=== PATIENT | male | born 1985 | race Two or more races ===

== ENCOUNTER 2016-08-29 08:21 | Day surgery (SDC) | payer OTHER ==
[2016-08-29] VITALS (12 sets, daily range): BP systolic 96–116; BP diastolic 44–68; PULSE 72–84; RESP 16–22; Ht 170.2 cm; Wt 106.6 kg
[~2016-08-29] VITALS: Ht 170.2 cm; Wt 106.6 kg
[~2016-08-29 08:21] MED LIST: BUPIVACAINE 0.25%/EPI (SDV) 30 ML INJ INJ ONE; BUPIVACAINE 0.25%/EPI (SDV) 30 ML INJ ONE
[2016-08-29] MEDS ORDERED: SOD CHLORIDE 0.9% 1,000 ML IV ONE (08:30)
[2016-08-29] MEDS ORDERED: CEFAZOLIN 2 GM/50 ML (PMX) 50 ML IVPB ONE (08:30)
[2016-08-29] MEDS ORDERED: CITA20TA6 PO (10:08)
[2016-08-29] MEDS ORDERED: ARIP5TAB7 PO (10:08)
[2016-08-29 10:20] LABS: BASOPHILS % 0.5 % (0.0-2.0); EOSINOPHILS # 0.1 10^3/ul (0.0-0.5); HEMATOCRIT 48.3 % (42.0-52.0); HEMOGLOBIN 16.3 g/dl (14.0-18.0); LYMPHOCYTES # 2.5 10^3/ul (0.8-2.9); LYMPHOCYTES % 38.3 % (15.0-51.0); MEAN CORPUSCULAR HEMOGLOBIN 29.5 pg (29.0-33.0); MEAN CORPUSCULAR HGB CONC 33.7 g/dl (32.0-37.0); MEAN CORPUSCULAR VOLUME 87.4 fl (82.0-101.0); MEAN PLATELET VOLUME 9.3 fl (7.4-10.4); MONOCYTE # 0.3 10^3/ul (0.3-0.9); MONOCYTES % 5.3 % (0.0-11.0); NEUTROPHIL # 3.5 10^3/ul (1.6-7.5); NEUTROPHILS % 53.9 % (39.0-77.0); PLATELET COUNT 149 10^3/UL (140-440); RED BLOOD COUNT 5.53 10^6/ul (4.70-6.10); RED CELL DISTRIBUTION WIDTH 14.2 % (11.5-14.5); UNCORRECTED WBC 6.5 10^3/ul (4.8-10.8); WHITE BLOOD COUNT 6.5 10^3/ul (4.8-10.8)
[2016-08-29 10:22] LABS: INR 0.89; PT RATIO 0.9
[2016-08-29 10:23] LABS: CONDITION 1; PARTIAL THROMBOPLASTIN TIME 27.4 Sec (25.0-35.0)
[2016-08-29 10:43] LABS: POTASSIUM 4.3 mmol/L (3.5-5.1)
[2016-08-29 10:44] LABS: CALCIUM 9.2 mg/dl (8.4-10.2); CREATININE 0.9 mg/dl (0.61-1.24)
[2016-08-29] MEDS ORDERED: BUPIVACAINE 0.5%/EPI (SDV) 30 ML INJ ONE (11:41)
[2016-08-29] MEDS ORDERED: HYDROmorphONE 2 MG/ML SYG ONE (11:43)
[2016-08-29] MEDS ORDERED: MIDAZOLAM 1 MG/ML 2 ML INJ ONE (11:43)
[2016-08-29] MEDS ORDERED: GLYCOPYRROLATE 0.4 MG INJ ONE (11:52)
[2016-08-29] MEDS ORDERED: CEFAZOLIN 1 GM INJ ONE ×2 (11:52→14:12)
[2016-08-29] MEDS ORDERED: PROPOFOL 20 ML ONE ×2 (11:52→13:04)
[2016-08-29] MEDS ORDERED: NEOSTIGMINE 3 MG/3 ML SYRINGE ONE (11:52)
[2016-08-29] MEDS ORDERED: ROCURONIUM 50 MG INJ ONE (11:52)
[2016-08-29] MEDS ORDERED: ROPIVACAINE 0.5 % 30 ML VIAL ONE (11:52)
[2016-08-29] MEDS ORDERED: ONDANSETRON 4 MG INJ ONE (11:52)
[2016-08-29] MEDS ORDERED: KETOROLAC 30 MG INJ ONE (12:11)
[2016-08-29] MEDS ORDERED: OXYCODONE/ACETAMINOPHEN (5/325) TAB PO PRN ×2 (12:30)
[2016-08-29] MEDS ORDERED: METOCLOPRAMIDE 10 MG INJ IV PRN (12:30)
[2016-08-29] MEDS ORDERED: MEPERIDINE 25 MG INJ IV PRN (12:30)
[2016-08-29] MEDS ORDERED: ONDANSETRON 4 MG INJ IV PRN ×2 (12:30→13:30)
[2016-08-29] MEDS ORDERED: DIPHENHYDRAMINE 50 MG INJ IV PRN (12:30)
[2016-08-29] MEDS ORDERED: MIDAZOLAM 1 MG/ML 2 ML INJ IV PRN (12:30)
[2016-08-29] MEDS ORDERED: HYDROmorphONE (0.2 MG/ML) 10ML SYG IV PRN ×3 (12:30)
[2016-08-29] MEDS ORDERED: HYDROCODONE/APAP (5/325) TAB PO PRN ×2 (13:30)
[2016-08-29] MEDS ORDERED: morphine 4 MG/ML VIAL IV PRN (13:30)
--- NOTE | 2016-08-29 13:41 | OPR ---
Date/Time of Note Date/Time of Note DATE: 08/29/16 TIME: 13:33 Operative Report Procedure Date: Aug 29, 2016 Preoperative Diagnosis Chronic cholecystitis/cholelithiasis Postoperative Diagnosis Chronic cholecystitis/cholelithiasis Operation Performed Laparoscopic cholecystectomy Surgeon: SUSANA HERNÁNDEZ MD Anesthesia: general Anesthesiologist: FARHAT KLEIN MD Estimated Blood Loss: 50 - 100 ml's Specimens Gallbladder Complications: None Pt Condition Post Procedure: stable Disposition: PACU Indications The patient is a obese 31-year-old male who presented to the office with a 1-1/2 month history of right upper quadrant abdominal pain. The patient had clinical signs and symptoms of biliary colic and chronic cholecystitis which was confirmed via and ultrasound done after an emergency room visit which showed gallstones. The patient was scheduled for laparoscopic cholecystectomy; possible open as definitive treatment to prevent further sequelae of gallstone disease which include but are not limited to: Gangrenous cholecystitis, choledocholithiasis, gallstone pancreatitis, ascending cholangitis, etc. All risks and benefits of the procedure including but not limited to: Wound infection, excessive bleeding, common bile duct injury, postoperative biliary leak, retained common bile duct stone, injury to intra-abdominal organs, conversion to open procedure etc. were all explained to the patient in full detail. He fully understood and wished to proceed with the procedure. Informed consent was therefore obtained. Operative Findings Distended thick-walled gallbladder with findings consistent with severe chronic cholecystitis. Dense adhesions. Large stones within the gallbladder. Procedure Description The patient was operating room and placed supine on the operating table. Bilateral sequential compression devices were placed on both lower extremities. A dose of broad-spectrum perioperative intravenous antibiotics was given. After the induction of smooth general endotracheal anesthesia the patient's abdomen was prepped and draped in the standard surgical fashion. After performance of the surgical timeout a 5 mm incision was made in the inferior umbilicus and a Veress needle was used to access the intra-abdominal cavity atraumatically. Pneumoperitoneum was then obtained and the Veress needle was exchanged for a 5 mm trocar through which a 5 mm laparoscope was placed. Three further working ports were then placed a 12 mm port in the sub-xiphoid region and two 5 mm ports in the right upper quadrant. All port sites were anesthetized with 0.25% Marcaine with epinephrine prior to incision. There were filmy adhesions of the omentum to the anterior surface of the gallbladder. These were taken down with a combination of blunt dissection and hook electrocautery. Using atraumatic graspers the gallbladder was grasped and retracted superiorly and laterally exposing the area of Arias's pouch. The gallbladder was thick-walled and distended making it difficult to grasp. Dissection was begun in this area using a combination of blunt dissection and hook electrocautery. There was a lot of fat enveloping the cystic duct structures as well as chronic inflammatory adhesions. The cystic duct was identified as it entered straight into the neck of the gallbladder. Cystic duct was dissected free of surrounding tissues. It was too dilated to take with clips, therefore the duct was transected using an Endo FANNY stapler. Dissection was then continued posteriorly. The cystic artery was identified and dissected free of surrounding tissues. It was clipped proximally and distally 3 and transected using EndoShears. The gallbladder was then dissected off the liver bed using electrocautery. There were dense adhesions of the gallbladder to the liver bed. Once completely free the gallbladder was placed in an Endo Catch bag and withdrawn through the subxiphoid port site and passed off the field as specimen. The subxiphoid port site had to be significantly enlarged to accommodate the thick-walled gallbladder and large stones within it. Hemostasis was then inspected for and noted to be adequate. The abdomen was then irrigated with several liters of warm normal saline and the irrigant returned crystal clear. Pneumoperitoneum was then released and all trochars were withdrawn under direct vision. The fascia of the xiphoid port site was reapproximated using a combination of the Endo close device and a second layer of 0 Vicryl sutures in running fashion. The subcutaneous tissues were irrigated with more warm normal saline and further local anesthesia was applied around the skin of the incision sites. The skin was then reapproximated using 4-0 Monocryl sutures in subcuticular fashion. The incisions were cleaned and Dermabond was applied to the incisions and the patient was awoken from anesthesia and transported to the recovery room in stable condition. All counts were correct at the end of the case 2. SUSANA HERNÁNDEZ MD Aug 29, 2016 13:41
== END 2016-08-29 15:36 | disposition home or self-care (01) ==
LOC: SDS 08:21
PROVIDERS: ATTEND Surgery
DX: K80.10 Calculus of gallbladder with chronic cholecystitis without obstruction (principal)
CPT/HCPCS: 47562; 80048; 85025; 85610; 85730; 88304; J0690; J1170; J1885; J2250; J2405; J2710; J2795; Z7512; Z7610

== ENCOUNTER 2016-09-07 21:29 | Observation (INO) | payer OTHER ==
[~2016-09-07] VITALS: Ht 170.2 cm; Wt 105.0 kg
[~2016-09-07 21:29] MED LIST changes: +ARIP5TAB7 PO; -BUPIVACAINE 0.25%/EPI (SDV) 30 ML INJ INJ ONE; -BUPIVACAINE 0.25%/EPI (SDV) 30 ML INJ ONE; +CITA20TA6 PO
[2016-09-07] MEDS ORDERED: SOD CHLORIDE 0.9% 1,000 ML IV STA (21:49)
[2016-09-07] MEDS ORDERED: ONDANSETRON 4 MG INJ IV STA (21:49)
[2016-09-07 22:12] LABS: ALBUMIN 4.2 g/dl (3.3-4.9); POTASSIUM 4.3 mmol/L (3.5-5.1)
[2016-09-07 22:13] LABS: INR 0.91; PROTIME 12.3 Sec (12.2-14.2)
[2016-09-07 22:14] LABS: CREATININE 0.96 mg/dl (0.61-1.24); PARTIAL THROMBOPLASTIN TIME 22.5 Sec (25.0-35.0)
[2016-09-07 22:15] LABS: ALBUMIN/GLOBULIN RATIO 1.1; BILIRUBIN,DIRECT 0.8 mg/dl (0.00-0.20); BILIRUBIN,INDIRECT 0.4 mg/dl (0-1.1); BILIRUBIN,TOTAL 1.2 mg/dl (0.2-1.3); CALCIUM 9.3 mg/dl (8.4-10.2)
[2016-09-07] MEDS ORDERED: HYDR-3498 PO (22:17)
[2016-09-07 22:53] LABS: BASOPHILS % 0.6 % (0.0-2.0); EOSINOPHILS # 0.1 10^3/ul (0.0-0.5); EOSINOPHILS % 1.3 % (0.0-7.0); HEMATOCRIT 47.6 % (42.0-52.0); HEMOGLOBIN 15.8 g/dl (14.0-18.0); LYMPHOCYTES # 1.1 10^3/ul (0.8-2.9); LYMPHOCYTES % 14.4 % (15.0-51.0); MEAN CORPUSCULAR HEMOGLOBIN 29.1 pg (29.0-33.0); MEAN CORPUSCULAR HGB CONC 33.2 g/dl (32.0-37.0); MEAN CORPUSCULAR VOLUME 87.8 fl (82.0-101.0); MEAN PLATELET VOLUME 8.7 fl (7.4-10.4); MONOCYTE # 0.3 10^3/ul (0.3-0.9); MONOCYTES % 4.3 % (0.0-11.0); NEUTROPHIL # 6.3 10^3/ul (1.6-7.5); NEUTROPHILS % 79.4 % (39.0-77.0); PLATELET COUNT 209 10^3/UL (140-440); RED BLOOD COUNT 5.42 10^6/ul (4.70-6.10); RED CELL DISTRIBUTION WIDTH 14.2 % (11.5-14.5); UNCORRECTED WBC 7.9 10^3/ul (4.8-10.8); WHITE BLOOD COUNT 7.9 10^3/ul (4.8-10.8)
[2016-09-07 22:54] LABS: CONDITION 1
[2016-09-07 23:13] LABS: URINE BILIRUBIN (Dip) 1+ (NEGATIVE); URINE BLOOD (Dip) NEGATIVE (NEGATIVE); URINE COLOR DK. YELLOW (YELLOW); URINE GLUCOSE (Dip) NEGATIVE (NEGATIVE); URINE KETONES (Dip) NEGATIVE (NEGATIVE); URINE LEUKOCYTE ESTERASE (Dip) NEGATIVE (NEGATIVE); URINE NITRITE (Dip) NEGATIVE (NEGATIVE); URINE UROBILINOGEN (Dip) 1.0 E.U./dL (0.1-1.0)
[2016-09-07 23:16] LABS: ADD UMIC NO; URINE TOTAL PROTEIN (Dip) NEGATIVE (NEGATIVE)
--- NOTE | 2016-09-07 23:18 | RADRPT ---
PROCEDURE: CT Abdomen and Pelvis without contrast CLINICAL INDICATION: Status post cholecystectomy on 08/29. Now with pain and vomiting TECHNIQUE: Transaxial images were obtained through the abdomen and pelvis on a multi-slice scanner without the intravenous contrast administration. No oral contrast had previously been given. Sagit adri and coronal re-formations were subsequently reconstructed. One or more of the following dose reduction techniques were used: - Automated exposure control. - Adjustment of the mA and/or kV according to patient size. - Use of iterative reconstruction technique. Radiation dose: CTDIvol = 22.65 mGy; DLP = 1285.42 mGy-cm. COMPARISON: No prior studies are available for comparison. FINDINGS: Lung bases: Discoid atelectasis is seen in the left lower lobe. Liver: The liver is enlarged and extensively fatty infiltrated with no focal lesion identified. Gallbladder: Surgical wali are seen in the gallbladder fossa. No fluid collection is seen in the gallbladder fossa but there is slight stranding in the mesentery extending anteriorly compatible wi th postoperative change. Bile ducts: There is no intrahepatic bile duct dilatation but the common hepatic duct and proximal c ommon bile duct measure 1.0 cm in diameter and the common bile duct tapers to the inferior head of t he pancreas. Pancreas: No pancreatic mass or inflammation is evident. Spleen: Normal in size with no focal lesion. Adrenals: Normal with no mass identified. Kidneys, ureters and bladder: The kidneys are normal in size and there is no mass, pathological calc ification, or hydronephrosis evident. There is no perinephric stranding. The ureters are normal in c aliber and no ureteroliths are identified. The bladder appears unremarkable. Reproductive organs: The prostate is not enlarged. Stomach and bowel: The stomach appears unremarkable as is the small bowel. Abundant stool is seen w ithin the right colon. The colonic wall is mildly thickened in the region of the hepatic flexure. There is no evidence of bowel obstruction. Appendix: A normal vermiform appendix is evident. Peritoneum: No free intraperitoneal fluid or air is identified. Aorta: Normal in caliber with no aneurysmal dilatation. IVC: Unremarkable. Lymph nodes: No pathologically enlarged nodes are identified. Osseous structures: The osseous elements appear intact. IMPRESSION: 1. Status post cholecystectomy. No fluid collection is seen in the gallbladder fossa but there is stranding in the fat extending anteriorly into the mesentery and omentum compatible with postoperati ve change. 2. The common hepatic tendon proximal common bile duct are dilated to 1.0 cm in cross diameter and the common bile duct tapers through the inferior head of the pancreas. No pancreatic mass or inflam mation is evident. 3. Hepatomegaly with extensive diffuse fatty infiltration of the liver. No focal lesion is evident . 4. Mild thickening of the bowel wall of the colon in the region of the hepatic flexure where the po stoperative stranding is seen. There is substantial stool in the right colon but there is no eviden ce of bowel obstruction and a normal vermiform appendix is evident. 5. There is no free intraperitoneal fluid or air. Physician Tamanna Date Time Electronically viewed and signed by Physician Tamanna on 09/07/2016 23:18 /
[2016-09-07 23:23] LABS: ICTOTEST POSITIVE (NEGATIVE)
[2016-09-07] MEDS ORDERED: KETOROLAC 30 MG INJ IV STA (23:35)
[2016-09-07 23:50] VITALS: PULSE 60; TEMP 97.6
--- NOTE | 2016-09-08 00:26 | ERA ---
ER Documentation Chief Complaint Date/Time DATE: 09/08/16 TIME: 00:16 Chief Complaint Pt jaundiced,vomiting, AP X 7 hours. HPI 31-year-old male with a history of chronic cholecystitis and cholelithiasis status post laparoscopic cholecystectomy on [address] Dave, presenting with worsening right upper quadrant and epigastric pain with nausea and vomiting that started today at around 2 PM. He has had multiple episodes of nonbloody and nonbilious vomiting. His pain is constant but not much worse than his usual pain after his surgery. He describes the pain as aching, nonradiating, worse with vomiting. He has been having normal bowel movements. Today he went to [facility], where they told him he had constipation and gave him a prescription for a medication for constipation but also told him to follow-up at [facility] where the surgery was done. The patient has had persistent vomiting all day, he came here for evaluation. He denies any associated fevers, chills, headache, dysuria, hematochezia or melena. ROS All systems reviewed and are negative except as per history of present illness. Medications Home Meds Reported Medications Hydrocodone Bit-Acetaminophen (Hydrocodone Bit-APAP) 5-325MG Tablet, 1 TAB PO Q4 Y for PAIN, TAB 09/07/16 Aripiprazole* (Abilify*) 5 Mg Tab, 5 MG PO DAILY, #30 TAB 08/29/16 Citalopram Hydrobromide* (Citalopram Hydrobromide*) 20 Mg Tablet, 20 MG PO DAILY , #30 TAB 08/29/16 Allergies Allergies: Coded Allergies: No Known Allergy (Unverified , 09/07/16) PMhx/Soc History of Surgery: Yes (Laparoscopic cholecystectomy August 29, 2016) Anesthesia Reaction: No Hx Neurological Disorder: No Hx Respiratory Disorders: No Hx Cardiac Disorders: No Hx Psychiatric Problems: Yes (SCHIZOPHRENIA) Hx Miscellaneous Medical Probl: No Hx Alcohol Use: No Hx Substance Use: No Hx Tobacco Use: No Smoking Status: Never smoker FmHx Family History: No diabetes Physical Exam Vitals Vital Signs Date Time Temp Pulse Resp B/P Pulse Ox O2 Delivery O2 Flow Rate FiO2 09/07/16 23:50 97.6 60 16 115/70 100 Room Air 09/07/16 21:33 97.6 76 18 143/71 98 Physical Exam Const: Well-appearing, mild distress secondary to vomiting, nontoxic Head: Atraumatic Eyes: Normal Conjunctiva, no scleral icterus ENT: Normal External Ears, Nose and Mouth. Neck: Full range of motion. No meningismus. Resp: Clear to auscultation bilaterally Cardio: Regular rate and rhythm, no murmurs Abd: Soft, minimal right upper quadrant tenderness to palpation, no rebound or guarding, mildly distended. Normal bowel sounds Skin: No petechiae or rashes, no jaundice Back: No midline or flank tenderness Ext: No cyanosis, or edema Neur: Awake and alert Psych: Normal Mood and Affect Result Diagram: 09/07/16215209/07/162152 Results 24 hrs Laboratory Tests Test 09/07/16 21:53 09/07/16 22:17 Activated Partial Thromboplast Time 22.5Sec Alanine Aminotransferase (ALT/SGPT) 695IU/L Albumin 4.2g/dl Albumin/Globulin Ratio 1.10 Alkaline Phosphatase 133IU/L Anion Gap 17 Aspartate Amino Transf (AST/SGOT) 555IU/L Basophils # 0.010^3/ul Basophils % 0.6% Blood Urea Nitrogen 14mg/dl Calcium Level 9.3mg/dl Carbon Dioxide Level 27mmol/L Chloride Level 102mmol/L Creatinine 0.96mg/dl Direct Bilirubin 0.80mg/dl Eosinophils # 0.110^3/ul Eosinophils % 1.3% Globulin 3.80g/dl Glucose Level 141mg/dl Hematocrit 47.6% Hemoglobin 15.8g/dl INR International Normalized Ratio 0.91 Indirect Bilirubin 0.4mg/dl Lipase 30U/L Lymphocytes # 1.110^3/ul Lymphocytes % 14.4% Mean Corpuscular Hemoglobin 29.1pg Mean Corpuscular Hemoglobin Concent 33.2g/dl Mean Corpuscular Volume 87.8fl Mean Platelet Volume 8.7fl Monocytes # 0.310^3/ul Monocytes % 4.3% Neutrophils # 6.310^3/ul Neutrophils % 79.4% Nucleated Red Blood Cells # 0.010^3/ul Nucleated Red Blood Cells % 0.0/100WBC Platelet Count 44778^3/UL Potassium Level 4.3mmol/L Prothrombin Time 12.3Sec Prothrombin Time Ratio 1.0 Red Blood Count 5.4210^6/ul Red Cell Distribution Width 14.2% Sodium Level 142mmol/L Total Bilirubin 1.2mg/dl Total Protein 8.0g/dl White Blood Count 7.910^3/ul Urine Bilirubin 1+ Urine Clarity CLEAR Urine Color DK. YELLOW Urine Glucose NEGATIVE% Urine Hemoglobin NEGATIVE Urine Ictotest POSITIVE Urine Ketones NEGATIVE Urine Leukocyte Esterase NEGATIVE Urine Nitrite NEGATIVE Urine Specific [place] >=1.030 Urine Total Protein NEGATIVE Urine Urobilinogen 1.0 E.U./dL Urine pH 6.5 Current Medications Medications (Trade) Dose Ordered Sig/Behzad Route PRN Reason Start Time Stop Time Status Last Admin Dose Admin Sodium Chloride (NS) 1,000 ml @ 1,000 mls/hr Q1H STAT IV 09/07/16 21:49 09/07/16 22:48 DC 09/07/16 22:08 Ondansetron HCl (Zofran Inj) 4 mg ONCE STAT IV 09/07/16 21:49 09/07/16 21:51 DC 09/07/16 22:09 Ketorolac Tromethamine (Toradol) 30 mg ONCE STAT IV 09/07/16 23:35 09/07/16 23:37 DC 09/07/16 23:49 Procedures/MDM Patient is presenting with postop abdominal pain with nausea and vomiting for 1 day. His vitals are all stable and he is afebrile. I have a low suspicion for acute postsurgical intra-abdominal infection. I have a higher suspicion for retained stone. Patient's labs were notable for elevation in liver enzymes with mild bilirubin elevation. There is no evidence of pancreatitis. CT abdomen and pelvis done and shows stranding that may be consistent with postoperative changes. However his common bile duct is dilated to 1 cm per radiology. I discussed these results with Dr. Dave, the patient's surgeon, who recommended admission for observation and for MRCP. The patient's pain and vomiting were controlled with medication in the ED and he remained hemodynamically stable. Patient was admitted to Dr. Hurd, panel physician. Departure Diagnosis: Primary Impression: Postoperative nausea and vomiting Additional Impressions: Transaminitis Common bile duct dilatation Postoperative upper abdominal pain Condition: MISSY Mcdowell MD Sep 08, 2016 00:26
[2016-09-08 01:17] VITALS: Ht 170.2 cm; Wt 105.0 kg
[2016-09-08 01:50] VITALS: BP 117/56; RESP 20
[2016-09-08] MEDS ORDERED: morphine 4 MG/ML VIAL IV PRN (02:30)
[2016-09-08] MEDS ORDERED: ACETAMINOPHEN 650 MG SUPP PR PRN (02:30)
[2016-09-08] MEDS ORDERED: ONDANSETRON 4 MG INJ IV PRN (02:30)
[2016-09-08] MEDS ORDERED: LORAZEPAM 2 MG INJ IV PRN (02:30)
[2016-09-08] MEDS: DEXTROSE 5%-0.45% NACL 1,000 ML IV SCH ×2 (02:58→11:11)
[2016-09-08 05:55] LABS: BASOPHILS % 0.1 % (0.0-2.0); EOSINOPHILS # 0.1 10^3/ul (0.0-0.5); EOSINOPHILS % 1.7 % (0.0-7.0); HEMATOCRIT 41.4 % (42.0-52.0); HEMOGLOBIN 14.1 g/dl (14.0-18.0); LYMPHOCYTES # 1.3 10^3/ul (0.8-2.9); LYMPHOCYTES % 17.4 % (15.0-51.0); MEAN CORPUSCULAR HEMOGLOBIN 29.9 pg (29.0-33.0); MONOCYTE # 0.4 10^3/ul (0.3-0.9); MONOCYTES % 4.9 % (0.0-11.0); NEUTROPHIL # 5.9 10^3/ul (1.6-7.5); NEUTROPHILS % 75.9 % (39.0-77.0); PLATELET COUNT 182 10^3/UL (140-440); RED BLOOD COUNT 4.71 10^6/ul (4.70-6.10); RED CELL DISTRIBUTION WIDTH 14.3 % (11.5-14.5); UNCORRECTED WBC 7.7 10^3/ul (4.8-10.8); WHITE BLOOD COUNT 7.7 10^3/ul (4.8-10.8)
[2016-09-08 06:11] LABS: CONDITION 1
[2016-09-08 06:17] LABS: ALBUMIN 3.4 g/dl (3.3-4.9)
[2016-09-08 06:18] LABS: POTASSIUM 3.9 mmol/L (3.5-5.1)
[2016-09-08 06:20] LABS: ALBUMIN/GLOBULIN RATIO 1.13; BILIRUBIN,DIRECT 0.5 mg/dl (0.00-0.20); BILIRUBIN,INDIRECT 0.5 mg/dl (0-1.1); CREATININE 0.86 mg/dl (0.61-1.24); TOTAL PROTEIN 6.4 g/dl (6.1-8.1)
[2016-09-08 06:21] LABS: CALCIUM 8.6 mg/dl (8.4-10.2)
--- NOTE | 2016-09-08 07:42 | HP ---
DATE OF ADMISSION: 09/08/2016 TIME SEEN: 4 a.m. CHIEF COMPLAINT: Abdominal pain. HISTORY OF PRESENT ILLNESS: The patient is a 31-year-old female with a history of schizophrenia, wh o presented to the emergency department with a chief complaint of abdominal pain, nausea and vomitin g. The patient had a laparoscopic cholecystectomy 10 days ago, on August 29, here, by Dr. Dave. He stated this afternoon he started experiencing abdominal pain, mainly localized in the right upper quadrant and epigastric are, associated with multiple episodes of nonbilious, nonbloody vomiting. He denied any fever, chills, chest pain, shortness of breath. He actually initially went to [place], where he was told he was constipated and was discharged with a prescription, as well as instruction s to follow up here, and as such, he came here for evaluation. When he presented to the ER vitals were stable. Laboratory values were notable for an AST of 555, AL T 695 and a slightly elevated alkaline phosphatase of 133. Otherwise CBC and CMP are within normal limits. CT abdomen and pelvis showed a dilated CBD measuring 1 cm, as well as hepatomegaly with ext ensive diffuse fatty infiltration of the liver, mild thickening of the bowel wall of the colon in th e region of the hepatic flexure, and substantial stool in the right colon, with no evidence or const ipation. The patient was admitted for further management and observation and Dr. Dave has been not ified about the patient's admission. REVIEW OF SYSTEMS: A 12-point review of systems was performed and negative, except as mentioned in the HPI. PAST MEDICAL HISTORY: As per HPI. PAST SURGICAL HISTORY: As per HPI. SOCIAL HISTORY: The patient denied a history of tobacco, alcohol or illicit drug use. ALLERGIES: NO KNOWN DRUG ALLERGIES. HOME MEDICATIONS: 1. Abilify. 2. Citalopram. 3. Humbird. PHYSICAL EXAMINATION: VITAL SIGNS: Stable. GENERAL: In no acute distress, lying in bed, answering questions appropriately. HEENT: No obvious head deformity. No scleral icterus. Pupils are reactive to light. CARDIOVASCULAR: Regular rate and rhythm. No extra sounds. LUNGS: Clear. ABDOMEN: Soft. There is tenderness, mainly on the right side of the abdomen. No guarding, no rebo und tenderness, no rigidity. There are positive bowel sounds. EXTREMITIES: Show no edema. NEUROLOGIC: No focal deficits. LABORATORY: Pertinent positives results as mentioned in the HPI. IMAGING: CT abdomen and pelvis, with results as mentioned in the HPI. IMPRESSION: 1. Probable choledocholithiasis. 2. Abdominal pain, probably secondary to choledocholithiasis. 3. Abnormal liver enzymes, secondary to likely above. 4. Status post recent laparoscopic cholecystectomy for chronic cholecystitis. 5. History of schizophrenia. PLAN: Will keep him n.p.o. He will be placed on IV fluids. Will provide pain medication and antie metics as needed. Given dilated CBD, will obtain a MRCP for further evaluation. Will place a GI co nsult as needed. He will be followed by Dr. Dave, his surgeon. Further workup and management per clinical course. Dictated By: JACINTO HAMPTON/DONG Conf#: [id number] DID#: [id number]
[2016-09-08 08:30] VITALS: BP 109/65; RESP 22
--- NOTE | 2016-09-08 09:35 | CONS ---
Date/Time of Note Date/Time of Note DATE: 09/08/16 TIME: 09:31 Assessment/Plan Assessment/Plan Chief Complaint/Hosp Course 31-year-old male status post laparoscopic cholecystectomy postop day #10 with nausea/vomiting elevated transaminases * The concern here would mainly be for retained common bile duct stone. * MRCP has been ordered. We will follow up. * Continue nothing by mouth, IV fluid hydration until after MRCP * Dulcolax for constipation The above was discussed with the patient and his father at the bedside as well as a primary care team. Further recommendations will made based on patient's clinical course and results of diagnostic studies. Problems: Consultation Date/Type/Reason Admit Date/Time Sep 08, 2016 at 00:08 Date of Consultation: Sep 08, 2016 Type of Consultation: GENERAL SURGERY Reason for Consultation Abdominal pain, vomiting Hx of Present Illness The patient is an obese 31-year-old male status post laparoscopic cholecystectomy on August 29, 2016 for severe chronic cholecystitis and cholelithiasis. The patient's postoperative course had been uneventful until yesterday when he started to experience a little more epigastric abdominal pain which was associated with multiple episodes of nonbilious emesis. The patient presented to the [place] emergency room where he was told to have had constipation. It was recommended that he follow up at [facility]. On arrival to the emergency room here he was found to have elevated transaminases with a total bilirubin level of 1.2. A CT scan which was done showed normal postoperative changes. The common bile duct was seen to be approximately 1 cm with some distal tapering. He has since been admitted. He states he feels better with improvement of his pain and his nausea/vomiting. His last bowel movement was yesterday. He denies any fever/chills. A 14 point review of systems was conducted and was negative except for that which was mentioned in history of present illness Past Medical History Medical History: other (schizophrenia) Past Surgical History Past Surgical Hx: cholecystectomy Family History Significant Family History: no pertinent family hx Social History Smoking Status: Never smoker Exam/Review of Systems Vital Signs Vitals Vital Signs Date Time Temp Pulse Resp B/P Pulse Ox O2 Delivery O2 Flow Rate FiO2 09/08/16 01:50 98.2 71 20 117/56 97 09/07/16 23:50 Room Air Intake and Output 09/07/16 09/07/1617 15:00 23:00 07:00 Intake Total 250 ml Balance 250 ml Exam GENERAL: Awake, alert, oriented 3. No acute distress. SKIN: No jaundice. HEENT: PERRLA, EOMI, No Scleral Icterus NECK: Supple without JVD CARDIOVASCULAR: S1S2, regular rate and rhythm. No murmurs appreciated. RESPIRATORY: Clear to auscultation bilaterally. ABDOMEN: Obese, Soft, bowel sounds present, nondistended, mild epigastric tenderness to palpation. There is no rebound, guarding or evidence of diffuse peritonitis. EXTREMITIES: Free range of motion 4. No cyanosis, edema, or clubbing. NEUROLOGIC: Cranial nerves II-XII are intact. Sensation is intact grossly. Results Result Diagram: 09/08/16 0455 09/08/16 0455 Results 24 hrs Laboratory Tests Test 09/07/16 21:53 09/07/16 22:17 09/08/16 04:55 Activated Partial Thromboplast Time 22.5 L Alanine Aminotransferase (ALT/SGPT) 695 H 637 H Albumin 4.2 3.4 Albumin/Globulin Ratio 1.10 1.13 Alkaline Phosphatase 133 H 108 Anion Gap 17 H 16 Aspartate Amino Transf (AST/SGOT) 555 H 416 H Basophils # 0.0 0.0 Basophils % 0.6 0.1 Blood Urea Nitrogen 14 12 Calcium Level 9.3 8.6 Carbon Dioxide Level 27 27 Chloride Level 102 104 Creatinine 0.96 0.86 Direct Bilirubin 0.80 H 0.50 #H Eosinophils # 0.1 0.1 Eosinophils % 1.3 1.7 Globulin 3.80 H 3.00 Glucose Level 141 131 Hematocrit 47.6 41.4 L Hemoglobin 15.8 14.1 INR International Normalized Ratio 0.91 Indirect Bilirubin 0.4 0.5 Lipase 30 Lymphocytes # 1.1 1.3 Lymphocytes % 14.4 L 17.4 Mean Corpuscular Hemoglobin 29.1 29.9 Mean Corpuscular Hemoglobin Concent 33.2 34.0 Mean Corpuscular Volume 87.8 88.0 Mean Platelet Volume 8.7 9.0 Monocytes # 0.3 0.4 Monocytes % 4.3 4.9 Neutrophils # 6.3 5.9 Neutrophils % 79.4 H 75.9 Nucleated Red Blood Cells # 0.0 0.0 Nucleated Red Blood Cells % 0.0 0.0 Platelet Count 209 # 182 Potassium Level 4.3 3.9 Prothrombin Time 12.3 Prothrombin Time Ratio 1.0 Red Blood Count 5.42 4.71 Red Cell Distribution Width 14.2 14.3 Sodium Level 142 143 Total Bilirubin 1.2 1.0 Total Protein 8.0 6.4 # White Blood Count 7.9 # 7.7 Urine Bilirubin 1+ H Urine Clarity CLEAR Urine Color DK. YELLOW Urine Glucose NEGATIVE Urine Hemoglobin NEGATIVE Urine Ictotest POSITIVE Urine Ketones NEGATIVE Urine Leukocyte Esterase NEGATIVE Urine Nitrite NEGATIVE Urine Specific [place] >=1.030 H Urine Total Protein NEGATIVE Urine Urobilinogen 1.0 E.U./dL Urine pH 6.5 Medications Medications Current Medications Dextrose/Sodium Chloride (D5-1/2ns) 1,000 ml @ 125 mls/hr Q8H IV Last administered on 09/08/16t 02:58; Admin Dose 125 MLS/HR; Start 09/08/16 at 02:30 Lorazepam (Ativan) 0.5 mg Q4H PRN IV ANXIETY; Start 09/08/16 at 02:30 Morphine Sulfate (morphine) 3 mg Q4H PRN IV PAIN; Start 09/08/16 at 02:30 Acetaminophen (Tylenol Supp) 650 mg Q6H PRN OK MILD PAIN LEVEL 1-3; Start 09/08 at 02:30 Ondansetron HCl (Zofran Inj) 4 mg Q4H PRN IV NAUSEA AND/OR VOMITING; Start at 02:30 Procedures Procedures PROCEDURE: CT Abdomen and Pelvis without contrast CLINICAL INDICATION: Status post cholecystectomy on 08/29. Now with pain and vomiting TECHNIQUE: Transaxial images were obtained through the abdomen and pelvis on a multi-slice scanner without the intravenous contrast administration. No oral contrast had previously been given. Sagittal and coronal re-formations were subsequently reconstructed. One or more of the following dose reduction techniques were used: - Automated exposure control. - Adjustment of the mA and/or kV according to patient size. - Use of iterative reconstruction technique. Radiation dose: CTDIvol = 22.65 mGy; DLP = 1285.42 mGy-cm. COMPARISON: No prior studies are available for comparison. FINDINGS: Lung bases: Discoid atelectasis is seen in the left lower lobe. Liver: The liver is enlarged and extensively fatty infiltrated with no focal lesion identified. Gallbladder: Surgical wali are seen in the gallbladder fossa. No fluid collection is seen in the gallbladder fossa but there is slight stranding in the mesentery extending anteriorly compatible with postoperative change. Bile ducts: There is no intrahepatic bile duct dilatation but the common hepatic duct and proximal common bile duct measure 1.0 cm in diameter and the common bile duct tapers to the inferior head of the pancreas. Pancreas: No pancreatic mass or inflammation is evident. Spleen: Normal in size with no focal lesion. Adrenals: Normal with no mass identified. Kidneys, ureters and bladder: The kidneys are normal in size and there is no mass, pathological calcification, or hydronephrosis evident. There is no perinephric stranding. The ureters are normal in caliber and no ureteroliths are identified. The bladder appears unremarkable. Reproductive organs: The prostate is not enlarged. Stomach and bowel: The stomach appears unremarkable as is the small bowel. Abundant stool is seen within the right colon. The colonic wall is mildly thickened in the region of the hepatic flexure. There is no evidence of bowel obstruction. Appendix: A normal vermiform appendix is evident. Peritoneum: No free intraperitoneal fluid or air is identified. Aorta: Normal in caliber with no aneurysmal dilatation. IVC: Unremarkable. Lymph nodes: No pathologically enlarged nodes are identified. Osseous structures: The osseous elements appear intact. IMPRESSION: 1. Status post cholecystectomy. No fluid collection is seen in the gallbladder fossa but there is stranding in the fat extending anteriorly into the mesentery and omentum compatible with postoperative change. 2. The common hepatic tendon proximal common bile duct are dilated to 1.0 cm in cross diameter and the common bile duct tapers through the inferior head of the pancreas. No pancreatic mass or inflammation is evident. 3. Hepatomegaly with extensive diffuse fatty infiltration of the liver. No focal lesion is evident. 4. Mild thickening of the bowel wall of the colon in the region of the hepatic flexure where the postoperative stranding is seen. There is substantial stool in the right colon but there is no evidence of bowel obstruction and a normal vermiform appendix is evident. 5. There is no free intraperitoneal fluid or air. R Anne, Physician Date Time Electronically viewed and signed by Trav Rodríguez, Physician on 09/07/2016 23:18 RH/ CC: MISSY HERNANDEZ MD, MICHAEL A. MD Sep 08, 2016 09:35
[2016-09-08] MEDS ORDERED: LACTULOSE 30ML CUP PO PRN (10:00)
[2016-09-08] MEDS ORDERED: SENNA TAB PO PRN (10:00)
[2016-09-08] MEDS ORDERED: BISACODYL (EC) 5 MG TAB PO ONE (10:00)
[2016-09-08] MEDS ORDERED: SENN-53 PO (10:02)
[2016-09-08] MEDS ORDERED: HYDR-3498 PO (10:02)
--- NOTE | 2016-09-08 10:33 | RADRPT ---
PROCEDURE: MRI abdomen without contrast; MRCP CLINICAL INDICATION: abdominal pain TECHNIQUE: Multiplanar, multisequence imaging of the abdomen was obtained without contrast. Imagi ng includes axial and coronal T2 and T2 fat-saturated images. In addition, a dedicated high T2 signal intensity MRCP images were obtained in multiple planes with 3-D reconstructions. COMPARISON: CT abdomen 09/07/2016 FINDINGS: The gallbladder is removed. There is localized fat stranding and fluid signal intensity along with m ild susceptibility artifact in the gallbladder fossa that appears slightly diminished from prior exa m along with fat stranding and fluid signal consistent with postsurgical changes in the right upper quadrant abdominal wall incision. No filling defects are seen within the biliary ductal system with no evidence of intrahepatic biliary ductal dilatation. The common duct is borderline enlarged measur ing 7 mm. The pancreatic duct is not dilated. There is trace perihepatic and perisplenic ascites. There is uniform signal intensity of the liver without evidence of mass. The signal changes seen con sistent with fatty infiltration the liver. There is a flow void seen within the portal vein without gross evidence for portal vein thrombus. The kidneys are symmetric without hydronephrosis or mass. The adrenal glands are within normal limi ts. The pancreas is uniform without surrounding inflammation. There is no evidence of bowel obstruction. The aorta is unremarkable. There are no enlarged lymph n odes. There is no acute osseous abnormality. IMPRESSION: Status post gallbladder resection. There are surgical changes seen involving the right upper quadran t abdominal wall and mild fat stranding is seen in the gallbladder fossa with diminishing fluid cons istent with postsurgical changes. No evidence of choledocholithiasis or biliary ductal dilatation. Distended common duct is present l ikely related to postcholecystectomy physiology. Fatty liver. RPTAT: AA .Allie Larsen MD, MD Date Time Electronically viewed and signed by .Allie Larsen MD, MD on 09/08/2016 10:32 .J/
--- NOTE | 2016-09-08 13:38 | PDOCDIS ---
Discharge Instructions DIAGNOSIS Discharge Diagnosis: 1. Abdominal pain status post cholecystectomy 2. Transaminitis CONDITION Patient Condition: Stable HOME CARE INSTRUCTIONS: Diet Instructions: Low Fat /Cholesterol FOLLOW UP/APPOINTMENTS Appointments 1. Follow up with Dr. Nestor Dave in one week 2. Follow up with your primary care provider in 1-2 weeks OTHER ORDERS: Other Orders: 1. Call Dr. Dave if he had worsening abdominal pain/nausea/vomiting HUONG PATEL Sep 08, 2016 13:37
--- NOTE | 2016-09-08 13:43 | DS ---
Date/Time of Note Date/Time of Note DATE: 09/08/16 TIME: 13:38 Discharge Summary Admission/Discharge Info Admit Date/Time Sep 08, 2016 at 00:08 Discharge Date/Time Final Diagnosis 1. Abdominal pain status post cholecystectomy 2. Transaminitis likely secondary to #[address] Nestor Dave Hospital Course This is a 31-year-old male with a history of schizophrenia who came to [facility] due to reports of abdominal pain, nausea, vomiting. Patient recently had a laparoscopic cholecystectomy 10 days prior to this admission by Dr. Nestor Dave. On the day of admission he started to have abdominal pain localized in his right upper abdominal quadrant. He also reported having multiple episodes of nonbilious, nonbloody vomiting. He denied any fevers chills or chest pain or shortness of breath. Initially went to [facility] and was told he was constipated and discharged home with a prescription. He still had some abdominal discomfort and was instructed to follow-up with [facility] for further evaluation. Upon examination he did have transaminitis with AST of 555, and ALT of 6 and 95 as well as alkaline phosphatase of 133. CBC and CMP were otherwise within normal limits. Was reported. A CT scan of his abdomen and pelvis that showed him to have a dilated CBD measuring 1 cm as well as hepatomegaly. He was again seen by general surgeon Dr. Nestor Dave. We did keep the patient initially npo. He was optimized medically fluids. He did have follow-up MRCP of the patient which was negative for any choledocholithiasis or CBD dilation. Likely this was post operative physiology changes of previously mentioned dilated CBD. On the day of discharge she was able tolerate oral diet and did report resolution of his abdominal pain. He was instructed to follow-up with surgeon within a week. The plan of care was discussed with the patient and patient did verbalize his understanding. On the day of discharge patient was in stable condition Discussed plan of care with Disposition: Home Discharge process time is 40 minutes Home Meds Active Scripts Sennosides* (Senna Lax*) 8.6 Mg Tablet, 1 TAB PO Q12H Y for CONSTIPATION, #30 TAB Prov:HUONG PATEL 09/08/16 Reported Medications Hydrocodone Bit-Acetaminophen (Hydrocodone Bit-APAP) 5-325MG Tablet, 1 TAB PO Q4 Y for PAIN, TAB 09/07/16 Aripiprazole* (Abilify*) 5 Mg Tab, 5 MG PO DAILY, #30 TAB 08/29/16 Citalopram Hydrobromide* (Citalopram Hydrobromide*) 20 Mg Tablet, 20 MG PO DAILY , #30 TAB 08/29/16 Follow-up Plan CONDITION Patient Condition: Stable HOME CARE INSTRUCTIONS: Diet Instructions: Low Fat /Cholesterol FOLLOW UP/APPOINTMENTS Appointments 1. Follow up with Dr. Nestor Dave in one week 2. Follow up with your primary care provider in 1-2 weeks OTHER ORDERS: Other Orders: 1. Call Dr. Dave if he had worsening abdominal pain/nausea/vomiting Pending Labs Laboratory Tests Test 09/07/16 21:53 09/07/16 22:17 09/08/16 04:55 Activated Partial Thromboplast Time 22.5Sec (25.0-35.0) Alanine Aminotransferase (ALT/SGPT) 695IU/L (13-69) 637IU/L (13-69) Albumin 4.2g/dl (3.3-4.9) 3.4g/dl (3.3-4.9) Albumin/Globulin Ratio 1.10 1.13 Alkaline Phosphatase 133IU/L (42-121) 108IU/L (42-121) Anion Gap 17 (8-16) 16 (8-16) Aspartate Amino Transf (AST/SGOT) 555IU/L (15-46) 416IU/L (15-46) Basophils # 0.010^3/ul (0.0-0.1) 0.010^3/ul (0.0-0.1) Basophils % 0.6% (0.0-2.0) 0.1% (0.0-2.0) Blood Urea Nitrogen 14mg/dl (7-20) 12mg/dl (7-20) Calcium Level 9.3mg/dl (8.4-10.2) 8.6mg/dl (8.4-10.2) Carbon Dioxide Level 27mmol/L (21-31) 27mmol/L (21-31) Chloride Level 102mmol/L (97-110) 104mmol/L (97-110) Creatinine 0.96mg/dl (0.61-1.24) 0.86mg/dl (0.61-1.24) Direct Bilirubin 0.80mg/dl (0.00-0.20) 0.50mg/dl (0.00-0.20) Eosinophils # 0.110^3/ul (0.0-0.5) 0.110^3/ul (0.0-0.5) Eosinophils % 1.3% (0.0-7.0) 1.7% (0.0-7.0) Globulin 3.80g/dl (1.3-3.2) 3.00g/dl (1.3-3.2) Glucose Level 141mg/dl (70-220) 131mg/dl (70-220) Hematocrit 47.6% (42.0-52.0) 41.4% (42.0-52.0) Hemoglobin 15.8g/dl (14.0-18.0) 14.1g/dl (14.0-18.0) INR International Normalized Ratio 0.91 Indirect Bilirubin 0.4mg/dl (0-1.1) 0.5mg/dl (0-1.1) Lipase 30U/L (23-300) Lymphocytes # 1.110^3/ul (0.8-2.9) 1.310^3/ul (0.8-2.9) Lymphocytes % 14.4% (15.0-51.0) 17.4% (15.0-51.0) Mean Corpuscular Hemoglobin 29.1pg (29.0-33.0) 29.9pg (29.0-33.0) Mean Corpuscular Hemoglobin Concent 33.2g/dl (32.0-37.0) 34.0g/dl (32.0-37.0) Mean Corpuscular Volume 87.8fl (82.0-101.0) 88.0fl (82.0-101.0) Mean Platelet Volume 8.7fl (7.4-10.4) 9.0fl (7.4-10.4) Monocytes # 0.310^3/ul (0.3-0.9) 0.410^3/ul (0.3-0.9) Monocytes % 4.3% (0.0-11.0) 4.9% (0.0-11.0) Neutrophils # 6.310^3/ul (1.6-7.5) 5.910^3/ul (1.6-7.5) Neutrophils % 79.4% (39.0-77.0) 75.9% (39.0-77.0) Nucleated Red Blood Cells # 0.010^3/ul (0.0-0.0) 0.010^3/ul (0.0-0.0) Nucleated Red Blood Cells % 0.0/100WBC (0.0-0.0) 0.0/100WBC (0.0-0.0) Platelet Count 61977^3/UL (140-440) 61897^3/UL (140-440) Potassium Level 4.3mmol/L (3.5-5.1) 3.9mmol/L (3.5-5.1) Prothrombin Time 12.3Sec (12.2-14.2) Prothrombin Time Ratio 1.0 Red Blood Count 5.4210^6/ul (4.70-6.10) 4.7110^6/ul (4.70-6.10) Red Cell Distribution Width 14.2% (11.5-14.5) 14.3% (11.5-14.5) Sodium Level 142mmol/L (135-144) 143mmol/L (135-144) Total Bilirubin 1.2mg/dl (0.2-1.3) 1.0mg/dl (0.2-1.3) Total Protein 8.0g/dl (6.1-8.1) 6.4g/dl (6.1-8.1) White Blood Count 7.910^3/ul (4.8-10.8) 7.710^3/ul (4.8-10.8) Urine Bilirubin 1+ (NEGATIVE) Urine Clarity CLEAR (CLEAR) Urine Color DK. YELLOW (YELLOW) Urine Glucose NEGATIVE% (NEGATIVE) Urine Hemoglobin NEGATIVE (NEGATIVE) Urine Ictotest POSITIVE (NEGATIVE) Urine Ketones NEGATIVE (NEGATIVE) Urine Leukocyte Esterase NEGATIVE (NEGATIVE) Urine Nitrite NEGATIVE (NEGATIVE) Urine Specific [place] >=1.030 (1.003-1.030) Urine Total Protein NEGATIVE (NEGATIVE) Urine Urobilinogen 1.0 E.U./dL (0.1-1.0) Urine pH 6.5 (5.0-9.0) HUONG PATEL Sep 08, 2016 13:43
== END 2016-09-08 15:45 | disposition home or self-care (01) ==
LOC: E/R 21:29 → MS2 09-08 00:08
PROVIDERS: ADMIT Internal Medicine; ATTEND Internal Medicine
DX: R10.11 Right upper quadrant pain (principal); Z98.890 Other specified postprocedural states; R74.0 Nonspecific elevation of levels of transaminase and lactic acid dehydrogenase [LDH]; K83.8 Other specified diseases of biliary tract; K76.0 Fatty (change of) liver, not elsewhere classified; F20.9 Schizophrenia, unspecified; Z90.49 Acquired absence of other specified parts of digestive tract
CPT/HCPCS: 36415; 74176; 74181; 80053; 81003; 83690; 85025; 85610; 85730; 96374; 96375; J1885; J2405; J7030; J7042; Z7500; Z7502; Z7610; 99217; G0378

== ENCOUNTER 2016-09-13 14:47 | Outpatient (CLI) | payer OTHER ==
[~2016-09-13] VITALS: Ht 170.2 cm; Wt 107.3 kg
[~2016-09-13 14:47] MED LIST changes: +HYDR-3498 PO; +SENN-53 PO
[2016-09-13 14:58] VITALS: Ht 170.2 cm; Wt 107.3 kg
[2016-09-13 14:59] VITALS: BP 135/72; PULSE 91; RESP 16
--- NOTE | 2016-09-13 15:07 | PN ---
Date/Time of Note Date/Time of Note DATE: 09/13/16 TIME: 15:07 Outpatient Progress Note Chief Complaint Abdominal pain/status post cholecystectomy/depression/ HPI Abdominal pain/patient has abdominal pain, patient was recently hospitalized, patient had a gallstone, patient had laparoscopic cholecystectomy, no fever or chill, operative site clean, Status post cholecystectomy, patient was recently hospitalized and had a MRI scan on patient, for retained stone, scan was clean, no retained stone, no fever or chill, and abdominal pain, Schizophrenia/patient has major depression, patient has schizophrenia, patient has been taking medication, patient feels fine at present, Review of Systems Const: No Fever, no chills, no Wt. loss, no Fatigue, normal appetite, no diaphoresis. Eyes: No pain, no discharge, no redness, no visual change, no foreign body. ENT: No pain, no bleeding, no congestion, no sore throat, no dysphagia, no discharge or rhinitis. Lymph: No adenopathy, no tender nodes, no lymphedema. Resp: No SOB, no cough, no sputum, no wheezing, no chest pain. CV: No chest pain, no palpitaions, no ROMEO, no PND, no edema. GI: Normal appetite, no minimal abdominal pain, no nausea, no vomiting, no diarrhea, no blood, no constipation. : No frequency, no urgency, no dysuria, no hematuria, no flank pain, no discharge, no bleeding. Musc: No bone/joint pain, no back pain, no neck pain, no knee pain, no restricted ROM. Skin: No rash, no skin lesions, no erythema, no laceration, no bruising, no pruritus. Neuro: No MORATAYA, no dizziness, no syncope, no seizure, no focal-weakness. Endo: No polyuria, no polydypsia, no dry-skin, no temp-intolerance. Psych: No hallucinations, patient has major depression, no anxiety, no suicidal ideation. Ext: No edema, no pain, no ulcer, no weakness. Physical Exam Vital Signs Date Time Temp Pulse Resp B/P Pulse Ox O2 Delivery O2 Flow Rate FiO2 09/13/16 14:59 98.1 91 16 135/72 99 Room Air Mask General Appearance: A 31 year-old male who appears well-developed, well- nourished, in no acute distress. HEENT: Head normocephalic, atraumatic. Pupils equal, round, reactive to light and accommodate. Sclerae are no jaundice. Nasal turbinates pink without erythema or nasal discharge. Mucous membranes pink and moist without lesions. Oropharynx clear without any exudate or discharge. NECK: Supple. Trachea midline, No thyromegaly, No cervical lymphadenopathy, No mass, No carotid bruits, No JVD, Carotid pulses 2+ bilaterally. PULMONARY: Clear to auscultaion bilaterally, No retractions, Chest expansion symmetric bilaterally, no rales, no ronchi, no dulness on percussion. CARDIAC: Normal SI and S2, Regular rate and rythm, no murmur, gallop, or rub. GASTROINTESTINAL: Abdomen is soft, non-tende minimal discomfort, operative site clean, no redness, no bleeding or discharge,, Non Rigid, No distention, Positive bowel sounds x4 quadrants, Liver normal. SKIN: Warm, dry, no rash, no bruise, no echmosis. EXTREMITIES: Bilateral lower extremities normal, no edema, no phlabitus, pulse palpable, no contracture. MUSCULOSKELETAL: Spine Normal, Non-tender, Normal range of motion, No swelling, no deformity, no clubbing, or cyanosis, the patient has no edema to bilateral lower extremities, dorsalis pedis pulses palpable bilaterally. NEUROLOGIC: The patient is awake, alert, oriented, responding to yes/no questions appropriately, moving all extremities, cranial nerve intact, normal strenght, normal power, normal coordination, normal gait. Allergies Coded Allergies: No Known Allergy (Unverified , 09/07/16) PMH Gallstone/laparoscopy cholecystectomy/abnormal LFT,/depression/schizophrenia/ obesity Social Hx No smoking or drinking or drugs, Family Hx Noncontributory Assessment/Plan Impression Abdominal pain resolving/status post laparoscopy cholecystectomy/schizophrenia/ obesity Plan Patient has recent laparoscopic cholecystectomy, patient has recent admission postop, for vomiting, patient feel comfortable now, no fever or chill, patient education done, If patient has any problem to call us, or call primary care physician, Patient education done to lose weight, Patient education done for psych medication, and follow with the primary care physician on regular basis, Medications Home Meds Active Scripts Sennosides* (Senna Lax*) 8.6 Mg Tablet, 1 TAB PO Q12H Y for CONSTIPATION, #30 TAB Prov:REGIDORHUONG 09/08/16 Hydrocodone Bit-Acetaminophen (Hydrocodone Bit-APAP) 5-325MG Tablet, 1 TAB PO Q4 Y for PAIN, #14 TAB Prov:HUONG PATEL 09/08/16 Reported Medications Aripiprazole* (Abilify*) 5 Mg Tab, 5 MG PO DAILY, #30 TAB 08/29/16 Citalopram Hydrobromide* (Citalopram Hydrobromide*) 20 Mg Tablet, 20 MG PO DAILY , #30 TAB 08/29/16 MERLY FERNANDEZ MD Sep 13, 2016 15:07
== END 2016-09-13 16:35 | disposition home or self-care (01) ==
LOC: DCC 14:47
PROVIDERS: ATTEND Internal Medicine
DX: R10.9 Unspecified abdominal pain (principal); F20.9 Schizophrenia, unspecified; E66.9 Obesity, unspecified; Z68.37 Body mass index [BMI] 37.0-37.9, adult
CPT/HCPCS: G0463